=== PATIENT | female | born 1995 | race Two or more races ===

== ENCOUNTER 2017-07-22 06:52 | Emergency (ER) | payer OTHER ==
[2017-07-22 07:00] VITALS: BP 134/85
[2017-07-22] MEDS ORDERED: ACETAMINOPHEN 325 MG TABLET PO ONE (07:00)
--- NOTE | 2017-07-22 07:28 | ER Document Report ---
ED Extremity Problem, Lower - General Chief Complaint: Leg Pain Stated Complaint: ANKLE INJURY Time Seen by Provider: 07/22/17 07:21 Mode of Arrival: Ambulatory Information source: Patient - HPI Patient complains to provider of: Injury Location: Ankle Notes: Patient is here with complaints of right lower leg injury. She states that she stepped off a sidewalk wrong twisting her right foot and ankle. States that the pain radiates up to her mid lower leg. She denies striking her head. No loss of consciousness. She complains some tingling to the right foot. She denies any numbness. She is able to bear some weight. Pain in the ankle and foot are worse with any sort of weightbearing or walking. She denies any neck, back, chest, abdominal pain. No nausea, vomiting, diarrhea. No rash. No fever. No other complaints at this time. - Related Data Allergies/Adverse Reactions: No Known Drug Allergies Allergy (Verified 07/22/17 07:01) Past Medical History - Social History Smoking Status: Unknown if Ever Smoked Family History: Reviewed & Not Pertinent Review of Systems - Review of Systems -: Yes All other systems reviewed and negative Physical Exam - Vital signs Vitals: Temp Pulse Resp BP Pulse Ox 99.0 F 107 H 17 134/85 H 99 07/22/17 06:59 07/22/17 06:59 07/22/17 06:59 07/22/17 06:59 07/22/17 06:59 - Notes Notes: GENERAL: alert, cooperative, nontoxic, no distress. HEAD: normocephalic, atraumatic EYES: conjunctiva pink without discharge, no external redness or swelling. EARS: no external swelling, no external redness NOSE: atraumatic, no external swelling MOUTH/THROAT: mucous membranes moist and pink NECK: soft, supple, full range of motion, no meningismus. CHEST: no distress, lungs clear and equal throughout. No wheezing, rales, rhonchi. CARDIAC: regular rate and rhythm, no murmur, normal capillary refill, normal pulses. BACK: full range of motion, no CVA tenderness. EXTREMITIES: Tenderness to palpation of the right lateral malleolus, right lateral foot, right mid tib-fib. No deformity. No ligament instability. No proximal tib-fib tenderness. No swelling. Compartments are soft. Normal pulse and sensation distally. Achilles is intact with a normal Pena's test. NEURO: alert and oriented 3, no focal deficits, full range of motion of all extremities. PYSCH: appropriate mood, affect. Patient is cooperative. SKIN: pink, warm, dry, no rash. Course - Re-evaluation Re-evalutation: 07/22/17 08:32 Patient is nontoxic appearing with stable vitals. She is here with complaints of right ankle foot and leg pain after stepping off a curb and twisting her ankle. She has some tenderness. No deformities. No ligament instability. Compartments are soft. No redness or signs of infection. X-rays of the right tib-fib, ankle, foot show no acute fractures. Patient will be placed in an Aircast and given crutches as needed for pain. She will be given a prescription for Naprosyn. She is instructed to rest, ice, elevate. Follow-up if not better in 1 week, sooner for worsening pain, fever, numbness, tingling, weakness, any further concerns. The patient is noted to have elevated blood pressure during today's emergency department visit. The patient was informed of this finding. The patient was instructed that this may be related to pre-hypertension and requires further evaluation with a primary care provider. The patient has no hypertensive symptoms at this time. The patient's emergency department workup and current diagnosis were explained to the patient and or family. Follow-up instructions were provided. Medications if prescribed were discussed. Instructions for when to return to the emergency department including specific worrisome symptoms were discussed with the patient and/or family. - Vital Signs Vital signs: Temp Pulse Resp BP Pulse Ox 99.0 F 107 H 17 134/85 H 99 07/22/17 06:59 07/22/17 06:59 07/22/17 06:59 07/22/17 06:59 07/22/17 06:59 - Diagnostic Test Radiology reviewed: Image reviewed, Reports reviewed - Negative right tib-fib, ankle, foot Procedures - Immobilization Ankle Pre-Proc Neuro Vasc Exam: Normal Immobilizer type: Ankle stirrup Performed by: RN Post-Proc Neuro Vasc Exam: Normal Alignment checked and good: Yes Discharge - Discharge Clinical Impression: Ankle sprain Qualifiers: Encounter type: initial encounter Involved ligament of ankle: unspecified ligament Laterality: right Qualified Code(s): S93.401A - Sprain of unspecified ligament of right ankle, initial encounter Condition: Stable Disposition: HOME, SELF-CARE Instructions: Ice Packs (OM), Splint Precautions (OM), Sprained Ankle ([facility]), Family Physicians / Practices Additional Instructions: Take medications as prescribed. Wear splint and use crutches as needed for comfort. Rest, ice, elevate her ankle. Follow-up if not better in 1 week, sooner for increasing pain, fever, numbness, tingling, weakness, redness, any further concerns. Your blood pressure was elevated during today's visit. Have this rechecked with your doctor. Prescriptions: Naproxen [Naprosyn] 500 mg PO BID #20 tablet Forms: Elevated Blood Pressure, Smoking Cessation Education Referrals: [facility] [Provider Group] - Follow up as needed
--- NOTE | 2017-07-22 08:21 | RADIOLOGY REPORT (SQ) ---
EXAM DESCRIPTION: TIBIA FIBULA RIGHT COMPLETED DATE/TIME: 07/22/2017 7:51 am REASON FOR STUDY: fall injury- right ankle through knee pain COMPARISON: None. NUMBER OF VIEWS: Two views. TECHNIQUE: Two radiographic images acquired of the right tibia and fibula to include the knee and an kle in at least one projection. LIMITATIONS: None. FINDINGS: MINERALIZATION: Normal. BONES: No acute fracture or dislocation. No worrisome bone lesions. SOFT TISSUES: No metallic foreign bodies. OTHER: No other significant finding. IMPRESSION: No acute fractures identified. TECHNICAL DOCUMENTATION: JOB ID: [id number] [employer]- All Rights Reserved Reading location - IP/workstation name: [email or web address]
--- NOTE | 2017-07-22 08:23 | RADIOLOGY REPORT (SQ) ---
EXAM DESCRIPTION: FOOT RIGHT COMPLETE COMPLETED DATE/TIME: 07/22/2017 7:51 am REASON FOR STUDY: fall, injury, pain COMPARISON: None. NUMBER OF VIEWS: Three views. TECHNIQUE: AP, lateral and oblique radiographic images acquired of the right foot. LIMITATIONS: None. FINDINGS: MINERALIZATION: Normal. BONES: No acute fracture or dislocation. No worrisome bone lesions. JOINTS: Joint spaces maintained. SOFT TISSUES: No metallic foreign bodies. OTHER: No other significant finding. IMPRESSION: No acute fractures identified. TECHNICAL DOCUMENTATION: JOB ID: [id number] [employer]- All Rights Reserved Reading location - IP/workstation name: [email or web address]
--- NOTE | 2017-07-22 08:25 | RADIOLOGY REPORT (SQ) ---
EXAM DESCRIPTION: ANKLE RIGHT COMPLETE COMPLETED DATE/TIME: 07/22/2017 7:52 am REASON FOR STUDY: fall, injury, pain COMPARISON: None. NUMBER OF VIEWS: Three views. TECHNIQUE: AP, lateral, and oblique radiographic images acquired of the right ankle. LIMITATIONS: None. FINDINGS: MINERALIZATION: Normal. BONES: No acute fracture or dislocation. No worrisome bone lesions. JOINTS: Ankle mortise intact. SOFT TISSUES: No metallic foreign bodies. OTHER: No other significant finding. IMPRESSION: No acute fractures or dislocation identified. TECHNICAL DOCUMENTATION: JOB ID: [id number] [employer]- All Rights Reserved Reading location - IP/workstation name: [email or web address]
== END 2017-07-22 08:56 | disposition home or self-care (01) ==
LOC: ER 06:52
DX: S93.401A Sprain of unspecified ligament of right ankle, initial encounter (principal); X50.1XXA Overexertion from prolonged static or awkward postures, initial encounter; Y93.01 Activity, walking, marching and hiking; R20.2 Paresthesia of skin; R03.0 Elevated blood-pressure reading, without diagnosis of hypertension
CPT/HCPCS: 99283; 73610; 73630; 73590; L4350